=== PATIENT | male | born 1950 | race Caucasian/White ===

== ENCOUNTER 2020-07-24 23:47 | Inpatient (IN) | payer MEDICARE ==
[~2020-07-24] VITALS: Ht 172.7 cm; Wt 78.9 kg
[2020-07-25 00:16] LABS: HEMOGLOBIN 11.4 gm/dl (14.0-17.5); RED BLOOD COUNT 3.7 M/UL (4.20-5.50); WHITE BLOOD COUNT 4.8 K/UL (4.5-11.0)
[2020-07-25 00:32] LABS: BUN/CREATININE RATIO 28 (0-10)
[2020-07-25 08:35] LABS: HEMOGLOBIN 9.9 gm/dl (14.0-17.5); WHITE BLOOD COUNT 4.1 K/UL (4.5-11.0)
[2020-07-25 08:40] LABS: RED BLOOD COUNT 3.25 M/UL (4.20-5.50)
[2020-07-25 08:48] LABS: BUN/CREATININE RATIO 25 (0-10)
[2020-07-25] MEDS ORDERED: METFORMIN HCL1000 MG PO (19:53)
[2020-07-25] MEDS ORDERED: LIPITOR20 MG PO (19:54)
[2020-07-25] MEDS ORDERED: HYDROCODON-ACE1 EAC6 PO (19:55)
[2020-07-27 02:52] LABS: HEMOGLOBIN 11.7 gm/dl (14.0-17.5); WHITE BLOOD COUNT 4.7 K/UL (4.5-11.0)
[2020-07-27 02:57] LABS: RED BLOOD COUNT 3.79 M/UL (4.20-5.50)
[2020-07-27 03:15] LABS: BUN/CREATININE RATIO 19 (0-10)
[2020-07-29 04:13] LABS: HEMOGLOBIN 10.7 gm/dl (14.0-17.5); RED BLOOD COUNT 3.46 M/UL (4.20-5.50)
[2020-07-29 04:30] LABS: BUN/CREATININE RATIO 23 (0-10)
[2020-07-30] MEDS ORDERED: MIDODRINE HCL2.5 MG PO (16:11)
[2020-07-30] MEDS ORDERED: ASPIRIN 325MG325 MG PO (16:11)
[2020-07-30] MEDS ORDERED: FLORINEF 0.1 M0.1 MG PO (16:11)
== END 2020-07-30 18:14 | disposition home or self-care (01) | DRG 312 ==
LOC: EDBD 23:47 → ER1 23:47 → PROG CARE 07-25 02:54 → CDU 07-25 02:54 → PROG CARE 07-25 18:36
PROVIDERS: Emergency Medicine; Internal Medicine; ADMIT Internal Medicine
DX: I95.1 Orthostatic hypotension (principal); E27.40 Unspecified adrenocortical insufficiency; I25.10 Atherosclerotic heart disease of native coronary artery without angina pectoris; I65.21 Occlusion and stenosis of right carotid artery; E11.9 Type 2 diabetes mellitus without complications; E78.5 Hyperlipidemia, unspecified; Z20.822 Contact with and (suspected) exposure to COVID-19; E11.51 Type 2 diabetes mellitus with diabetic peripheral angiopathy without gangrene; H53.8 Other visual disturbances; F19.10 Other psychoactive substance abuse, uncomplicated; I73.9 Peripheral vascular disease, unspecified; Z89.029 Acquired absence of unspecified finger(s); Z95.1 Presence of aortocoronary bypass graft; Z88.6 Allergy status to analgesic agent; Z87.891 Personal history of nicotine dependence
CPT/HCPCS: ECHO; 36415; 70450; 70498; 71045; 80048; 80053; 80202; 81001; 82024; 82533; 82550; 82553; 82962; 83605; 83690; 83735; 83874; 83880; 84100; 84439; 84443; 84484; 85025; 85027; 85610; 85730; 87040; 87077; 93005; 93306; 99285; G0378; J0834; J3370; J7030; J7070; Q9967; U0002